=== PATIENT | female | born 1995 | race Caucasian/White ===

== ENCOUNTER → 2021-08-03 | Outpatient (CLI) ==
[~2021-08-03] MED LIST: ACHD5005 PO; HYDR-4226 PO; IBUP-844 PO; MULT-1136 PO; PREN1TAB19 PO; bcp TD
== END ==
LOC: LABNPT 08:00
DX: Z53.9 Procedure and treatment not carried out, unspecified reason (principal)

== ENCOUNTER 2022-08-27 10:38 | Outpatient (CLI) | payer MEDICAID ==
[~2022-08-27] VITALS: Ht 167.7 cm; Wt 120.5 kg
[2022-08-27 11:05] VITALS: BP 141/85
[2022-08-27 11:11] LABS: BILIRUBIN,URINE NEGATIVE (NEGATIVE); CLARITY,URINE CLEAR; COLOR,URINE YELLOW; GLUCOSE, URINE (UA) NEGATIVE (NEGATIVE); KETONES,URINE NEGATIVE (NEGATIVE); LEUKOCYTE ESTERASE ,URINE NEGATIVE (NEGATIVE); NITRITE,URINE NEGATIVE (NEGATIVE); PROTEIN,URINE NEGATIVE (NEGATIVE)
[2022-08-27 11:15] VITALS: BP 141/86
[2022-08-27 11:20] VITALS: BP 147/80
[2022-08-27 11:28] LABS: BACTERIA,URINE NEGATIVE /HPF; CALCIUM OXALATE CRYSTALS,UR FEW /LPF; RBC,URINE 0-2 /HPF
[2022-08-27] MEDS ORDERED: ACETAMINOPHEN 500 MG TAB (TYLENOL) PO NR (12:00)
[2022-08-27 12:07] LABS: BASOPHILS % (AUTO) 0 % (0-10); EOSINOPHILS % (AUTO) 1 % (0-10); HEMATOCRIT 35 % (35-52); HEMOGLOBIN 11.5 g/dL (11.5-16.0); LYMPHOCYTES # (AUTO) 1.6 10^3/uL (1.0-4.0); LYMPHOCYTES % (AUTO) 19 % (12-44); MEAN CORPUSCULAR HEMOGLOBIN 28 pg (25-34); MEAN CORPUSCULAR HGB CONC 33 g/dL (32-36); MEAN CORPUSCULAR VOLUME 84 fL (80-99); MEAN PLATELET VOLUME 10.3 fL (9.0-12.2); MONOCYTES # (AUTO) 0.5 10^3/uL (0.0-1.0); MONOCYTES % (AUTO) 6 % (0-12); NEUTROPHILS # (AUTO) 6.1 10^3/uL (1.8-7.8); NEUTROPHILS % (AUTO) 73 % (42-75); PLATELET COUNT 214 10^3/uL (130-400); WHITE BLOOD COUNT 8.4 10^3/uL (4.3-11.0)
[2022-08-27 12:28] LABS: ALBUMIN 3.2 GM/DL (3.2-4.5)
[2022-08-27 12:29] LABS: CALCIUM 9.1 MG/DL (8.5-10.1)
[2022-08-27 12:30] LABS: TOTAL PROTEIN 6.7 GM/DL (6.4-8.2)
[2022-08-27 12:32] LABS: BILIRUBIN,TOTAL 0.2 MG/DL (0.1-1.0)
[2022-08-27 12:34] LABS: CREATININE SERUM 0.66 MG/DL (0.60-1.30)
[2022-08-27 12:37] LABS: URIC ACID 3.9 MG/DL (2.6-7.2)
--- NOTE | 2022-08-28 08:42 | Physician Query-Final Dx ---
Clinic Account Progress/Dx Physician Query: Please give diagnosis Please include # weeks gestation Date of Service Aug 27, 2022 at 10:38 JulAug 28, 2022 08:42
== END 2022-08-27 13:00 ==
LOC: LDRP 10:38 → WSo 10:38
PROVIDERS: ATTEND Family Medicine
DX: O26.853 Spotting complicating pregnancy, third trimester (principal); Z3A.35 35 weeks gestation of pregnancy
CPT/HCPCS: 36415; 80053; 81000; 82570; 83615; 84156; 84550; 85025; 99214

== ENCOUNTER 2022-09-02 18:18 | Inpatient (IN) | payer OTHER, MEDICAID ==
[~2022-09-02] VITALS: Ht 168 cm; Wt 119.7 kg
[2022-09-02] VITALS (13 sets, daily range): BP systolic 109–160; BP diastolic 58–107
[2022-09-02] MEDS ORDERED: ceFAZolin INJECTION 2,000 MG ONE ×2 (20:10→20:11)
[2022-09-02] MEDS ORDERED: NS (IVPB) 50 ML ONE (20:11)
[2022-09-02] MEDS ORDERED: CITRIC ACID/SOB CIT (BICITRA) 30 ML UDC ONE (20:14)
[2022-09-02] MEDS ORDERED: METOCLOPRAMIDE INJ 10 MG/2 ML (REGLAN) ONE (20:14)
[2022-09-02] MEDS ORDERED: FAMOTIDINE 20MG/2ML IV (PEPCID) ONE (20:14)
[2022-09-02] MEDS ORDERED: METOCLOPRAMIDE INJ 10 MG/2 ML (REGLAN) IV ONE (20:15)
[2022-09-02] MEDS ORDERED: ceFAZolin INJECTION 2,000 MG in NS (IVPB) 50 ML IV ONE (20:15)
[2022-09-02] MEDS ORDERED: TETANUS,DIPTH,PERTUSS P/F (BOOSTRIX) 0.5 ML VIAL IM SCH (20:15)
[2022-09-02] MEDS ORDERED: FAMOTIDINE 20MG/2ML IV (PEPCID) IV ONE (20:15)
[2022-09-02] MEDS ORDERED: LACTATED RINGERS 1,000 ML IV PRN (20:15)
[2022-09-02] MEDS ORDERED: ONDANSETRON 4 MG/2 ML (SDV) Z0FRAN IVP ONE (20:15)
[2022-09-02] MEDS ORDERED: CITRIC ACID/SOB CIT (BICITRA) 30 ML UDC PO ONE (20:15)
[2022-09-02 20:19] LABS: BASOPHILS % (AUTO) 0 % (0-10); EOSINOPHILS # (AUTO) 0.1 10^3/uL (0.0-0.3); EOSINOPHILS % (AUTO) 1 % (0-10); HEMATOCRIT 37 % (35-52); HEMOGLOBIN 11.7 g/dL (11.5-16.0); LYMPHOCYTES # (AUTO) 2.1 10^3/uL (1.0-4.0); LYMPHOCYTES % (AUTO) 20 % (12-44); MEAN CORPUSCULAR HEMOGLOBIN 28 pg (25-34); MEAN CORPUSCULAR HGB CONC 32 g/dL (32-36); MEAN CORPUSCULAR VOLUME 86 fL (80-99); MEAN PLATELET VOLUME 10.3 fL (9.0-12.2); MONOCYTES # (AUTO) 0.8 10^3/uL (0.0-1.0); MONOCYTES % (AUTO) 8 % (0-12); NEUTROPHILS # (AUTO) 7.4 10^3/uL (1.8-7.8); NEUTROPHILS % (AUTO) 71 % (42-75); PLATELET COUNT 243 10^3/uL (130-400); WHITE BLOOD COUNT 10.5 10^3/uL (4.3-11.0)
--- NOTE | 2022-09-02 20:19 | History & Physical-OB ---
OB - Chief Complaint & HPI Date/Time Date of Admission: Date of Admission: Sep 02, 2022 at 19:55 Date seen by a Provider: Sep 02, 2022 Time Seen by a Provider: 19:45 Chief Complaint/History OB-Reason for Admission/Chief: Rupture of Membranes Hx : 2 Hx Para: 1 Expected Date of Delivery: Sep 02, 2022 Gestational Age in Weeks: 36 Gestational Age in Days: 3 Indication for : desires repeat Allergies and Home Medications Allergies Coded Allergies: No Known Drug Allergies (Verified , 08/03/21) Patient Home Medication List Home Medication List Reviewed: Yes Multivitamin (Multivitamin) 1 Each Tablet, 1 EACH PO DAILY, (Reported) Entered as Reported by: ARIC CRISOSTOMO on 06/15/20 1415 Discontinued Medications [bcp] , 1 PATCH TD WEEK, (Reported) Discontinued Reason: No Longer Taking Entered as Reported by: STEVE GARCIA on 07/19/20 1614 OB - History Hx of Present Care: Yes Obstetrical History Hx : 2 Hx Para: 1 Delivery History Adverse Rxn to Tranfusion: No Patient Past Medical History None Social History/Family History Alcohol Use: Denies Use Recreational Drug Use: No 2nd Hand Smoke Exposure: No Immunizations Influenza Vaccine Up-to-Date: Yes; Up-to-Date Tetanus Booster (TDap): Less than 5yrs OB - Admission Exam Physical Exam Vitals: Vital Signs 09/02/22 19:00 Temp 36.7 Pulse 92 Resp 18 B/P (MAP) 154/94 Pulse Ox 98 O2 Delivery Room Air Labs Laboratory Tests Test 09/02/22 18:25 Range/Units Urine Protein 21 H 6-12 MG/DL Urine Creatinine 101 30-125 MG/DL Urine Protein/Creatinine Ratio 0.21 Amniotic Fluid Ferning Test N NEGATIVE Membranes Rupture POSITIVE OB - Assessment/Plan/Diagnosis Assessment Assessment: active labor, section, IUP - , rupture of membranes Admission Dx PPROM, Previous requesting repeat, early labor. Admission Status: Inpatient Order (span 2 midnights) Reason for Inpatient Admission: PPROM, Prior requesting repeat Plan Plan: Section LAUREN SIMON DO Sep 02, 2022 20:19
[2022-09-02] MEDS ORDERED: OXYTOCIN PRE-MIX DRIP 1,000 ML IV ONE (20:31)
[2022-09-02] MEDS ORDERED: ONDANSETRON 4 MG/2 ML (SDV) Z0FRAN ONE (20:31)
[2022-09-02] MEDS ORDERED: fentaNYL INJ 100 MCG/2 ML AMP ONE (20:31)
[2022-09-02] MEDS ORDERED: DOCUSATE SODIUM 100 MG (COLACE) CAP PO SCH (21:00)
[2022-09-02] MEDS ORDERED: PHENYLEPHRINE 100 MCG/ML 10 ML (ANESTHESIA) SYR ONE (21:01)
[2022-09-02] MEDS ORDERED: BUPIVACAINE 0.25% 10 ML (SENSORCAINE) VIAL ONE (21:36)
[2022-09-02] MEDS ORDERED: ONDANSETRON 4 MG/2 ML (SDV) Z0FRAN IVP PRN (22:00)
[2022-09-02] MEDS ORDERED: MEASLES,MUMPS,RUBELLA 1 EA INJ SC SCH (22:00)
[2022-09-02] MEDS ORDERED: OXYTOCIN PRE-MIX DRIP 500 ML IV SCH (22:00)
[2022-09-02] MEDS ORDERED: CATHETER FLUSH 10 ML SYR IV SCH ×2 (22:00)
--- NOTE | 2022-09-02 22:10 | Cesarean Section Operative ---
Procedure Procedure Note Pre-operative Diagnosis: Rashmi brothers (27 /Para 2 / 1, Gestational Age (wks)36 with PPROM, early labor, prior section requesting RLTCS, obesity, and elevated BPs. Post-operative Diagnosis: same with delivery of viable male. Procedure: Repeat low transverse section Physician: LAUREN SIMON DO Physician Vice President: Dr Pike Estimated blood loss: 300 mL Disposition: Stable at transfer to recovery room. Findings: Viable male , Apgars 8/9, normal appearing uterus, tubes, and ovaries. Indications:Rashmi brothers (27 /Para 2 / 1,Gestational Age (wks)3 6 presenting with PPROM, early labor, prior section requesting RLTCS, obesity, and elevated BPs. Procedure Details: The patient was seen in pre-op and the procedure was discussed with the patient in full, including the risks, benefits, and alternatives. All questions were answered. The patient was taken to the operating room and a time out was performed, verifying patient and procedure. After spinal anesthesia was placed by our anesthesia colleagues, the patient was placed in the dorsal supine with leftward tilt for uterine displacement.~ Her abdomen was then prepped and draped in the typical sterile fashion. A Pfannenstiel skin incision was made using a scalpel and carried down through the underlying fascia. The fascia was incised in the midline. On both the inferior and superior fascia side the rectus muscle was dissected off bluntly and sharply using Alonso scissors. The peritoneum was identified and entered bluntly in the midline. This was then stretched laterally using manual strength. The bladder blade was then placed. A bladder flap was created with the use of Metzenbaum scissors.~ A scalpel was utilized to make a low transverse uterine incision. Amniotomy was performed with an Allis clamp with return of clear fluid. The 's head was grasped and brought to the level of the incision. Fundal pressure was applied and infant was delivered without difficulty. Mouth and nares were suctioned with bulb suction. After the umbilical cord was clamped and cut, the was taken to the warmer by Dr Pike. A sample of cord blood was then obtained. The placenta was delivered intact via uterine massage. The uterus was exteriorized and cleared of all clots and debris. The uterine incision was closed using 1.0 Vicryl in a running locked fashion. A second imbricated layer was placed using 1.0 Vicryl in a running fashion as well. The uterus was flexed forward and the posterior rectouterine space was inspected and cleared of all clots and debris. Again the hysterotomy site was examined and hemostasis was observed. The bilateral tubes and ovaries appeared normal. The uterus was placed back into the abdominal cavity and abdominal gutters were cleared of all clots and debris. A final check of the uterine incision showed it to be hemostatic. The abdominal rectus muscles were reapproximated with 1.0 Vicryl sutures. The fascia was closed with a Stratafix suture in a running fashion. The subcutaneous space was closed with 3-0 Vicryl suture. The skin was then closed using 4-0 Monocryl in a running subcuticular fashion. The skin edges were reap proximated together and were hemostatic. All sponge, lap and needle counts were correct at the end of the procedure per nursing. Vitals - Labs Vital Signs - I&O Vital Signs Date Time Temp Pulse Resp B/P (MAP) Pulse Ox O2 Delivery O2 Flow Rate FiO2 09/02/22 19:00 36.7 92 18 154/94 98 Room Air Labs Laboratory Tests 09/02/22 18:25: Urine Protein 21H, Urine Creatinine 101, Urine Protein/Creatinine Ratio 0.21, Am niotic Fluid Ferning Test N, Membranes Rupture POSITIVE 09/02/22 19:55: White Blood Count 10.5, Red Blood Count 4.24, Hemoglobin 11.7, Hematocrit 37, Mean Corpuscular Volume 86, Mean Corpuscular Hemoglobin 28, Mean Corpuscular He moglobin Concent 32, Red Cell Distribution Width 13.7, Platelet Count 243, Mean Platelet Volume 10.3, Immature Granulocyte % (Auto) 1, Neutrophils (%) (Auto) 71, Lymphocytes (%) (Auto) 20, Monocytes (%) (Auto) 8, Eosinophils (%) (Auto) 1, Basophils (%) (Auto) 0, Neutrophils # (Auto) 7.4, Lymphocytes # (Auto) 2.1, Monocytes # (Auto) 0.8, Eosinophils # (Auto) 0.1, Basophils # (Auto) 0.0, Immature Granulocyte # (Auto) 0.1 LAUREN SIMON DO Sep 02, 2022:10
[2022-09-03] MEDS: oxyCODONE/APAP 5/325MG (PERCOCET 5) TABLET PO PRN ×4 (01:53→18:03)
[2022-09-03 01:56] VITALS: BP 122/73
[2022-09-03 05:12] LABS: BASOPHILS % (AUTO) 0 % (0-10); EOSINOPHILS % (AUTO) 0 % (0-10); HEMATOCRIT 31 % (35-52); LYMPHOCYTES # (AUTO) 2.1 10^3/uL (1.0-4.0); LYMPHOCYTES % (AUTO) 19 % (12-44); MEAN CORPUSCULAR HEMOGLOBIN 28 pg (25-34); MEAN CORPUSCULAR HGB CONC 33 g/dL (32-36); MEAN CORPUSCULAR VOLUME 86 fL (80-99); MEAN PLATELET VOLUME 10.3 fL (9.0-12.2); MONOCYTES # (AUTO) 0.9 10^3/uL (0.0-1.0); MONOCYTES % (AUTO) 8 % (0-12); NEUTROPHILS # (AUTO) 8.1 10^3/uL (1.8-7.8); NEUTROPHILS % (AUTO) 73 % (42-75); PLATELET COUNT 202 10^3/uL (130-400); WHITE BLOOD COUNT 11.1 10^3/uL (4.3-11.0)
[2022-09-03 05:32] LABS: CREATININE SERUM 0.62 MG/DL (0.60-1.30)
[2022-09-03] MEDS ORDERED: CATHETER FLUSH 10 ML SYR IV SCH (06:00)
[2022-09-03 06:50] VITALS: BP 115/67
--- NOTE | 2022-09-03 07:25 | Postpartum Progress Note ---
Note Note Day # 1 Subjective: Patient is without complaints. Ambulating, voiding. Tolerating a regular diet without nausea or vomiting. Normal lochia. Pain is well controlled with oral pain medications. Objective: Physical Exam: General - Alert and oriented, no apparent distress Abdomen - Soft, appropriately tender to palpation, non-distended, fundus firm at umbilicus Extremities - no edema, negative Esme's bilaterally Incision- c/d/i Assessment: POD 1 RLTCS Acute blood loss anemia Plan: Routine care. Encourage breast feeding. Encourage ambulation. Ferrous sulfate supplementation. Plan for discharge tomorrow Vitals - Labs Vital Signs - I&O Vital Signs Date Time Temp Pulse Resp B/P (MAP) Pulse Ox O2 Delivery O2 Flow Rate FiO2 09/03/22 05:18 Room Air 09/03/22 01:56 36.5 80 18 122/73 (89) 96 Room Air 09/02/22 23:03 36.6 69 18 124/71 (88) 97 Room Air 09/02/22 22:40 36.5 20 126/73 (90) 98 Room Air 09/02/22 22:35 Room Air 09/02/22 22:30 20 125/67 (86) 98 Room Air 09/02/22 22:20 Room Air 09/02/22 22:20 20 113/78 (90) 100 Room Air 09/02/22 22:10 24 126/74 (91) 98 Room Air 09/02/22 22:05 Room Air 09/02/22 22:00 20 114/64 (81) 98 Room Air 09/02/22 21:50 Room Air 09/02/22 21:50 36.4 16 109/58 (75) 97 Room Air 09/02/22 20:21 97 18 160/80 (106) 09/02/22 20:01 92 18 140/107 (118) 09/02/22 19:35 97 18 142/85 (104) 98 Room Air 09/02/22 19:19 85 18 145/85 (105) 97 Room Air 09/02/22 19:05 90 18 143/85 (104) 97 Room Air 09/02/22 19:00 36.7 92 18 154/94 98 Room Air I & O 09/03/22 07:00 Intake Total 500 ml Output Total 340 ml Balance 160 ml Labs Laboratory Tests 09/02/22 18:25: Urine Protein 21H, Urine Creatinine 101, Urine Protein/Creatinine Ratio 0.21, Amniotic Fluid Ferning Test N, Membranes Rupture POSITIVE 09/02/22 19:55: White Blood Count 10.5, Red Blood Count 4.24, Hemoglobin 11.7, Hematocrit 37, Mean Corpuscular Volume 86, Mean Corpuscular Hemoglobin 28, Mean Corpuscular Hemoglobin Concent 32, Red Cell Distribution Width 13.7, Platelet Count 243, Mean Platelet Volume 10.3, Immature Granulocyte % (Auto) 1, Neutrophils (%) (Auto) 71, Lymphocytes (%) (Auto) 20, Monocytes (%) (Auto) 8, Eosinophils (%) (Auto) 1, Basophils (%) (Auto) 0, Neutrophils # (Auto) 7.4, Lymphocytes # (Auto) 2.1, Monocytes # (Auto) 0.8, Eosinophils # (Auto) 0.1, Basophils # (Auto) 0.0, Immature Granulocyte # (Auto) 0.1 09/03/22 05:00: White Blood Count 11.1H, Red Blood Count 3.58L, Hemoglobin 10.0L, Hematocrit 31L , Mean Corpuscular Volume 86, Mean Corpuscular Hemoglobin 28, Mean Corpuscular Hemoglobin Concent 33, Red Cell Distribution Width 13.3, Platelet Count 202, Mean Platelet Volume 10.3, Immature Granulocyte % (Auto) 0, Neutrophils (%) (Auto) 73, Lymphocytes (%) (Auto) 19, Monocytes (%) (Auto) 8, Eosinophils (%) (Auto) 0, Basophils (%) (Auto) 0, Neutrophils # (Auto) 8.1H, Lymphocytes # (Auto) 2.1, Monocytes # (Auto) 0.9, Eosinophils # (Auto) 0.0, Basophils # (Auto) 0.0, Immature Granulocyte # (Auto) 0.0, Blood Urea Nitrogen 5L, Creatinine 0.62, Estimat Glomerular Filtration Rate 124, BUN/Creatinine Ratio 8 DERRELL REYNOSO DO Sep 03, 2022 07:25
--- NOTE | 2022-09-03 07:26 | Discharge Inst-Women's Service ---
Discharge Inst-Women's Serv Depart Medication/Instructions New, Converted or Re-Newed RX: Transmitted to Pharmacy Final Diagnosis POD 2 RLTCS Problems Reviewed?: Yes Consults/Follow Up Additional Follow Up: Yes Orders/Referrals Dr. Mejia in 7-10 days and [facility] in 6 weeks Activity Activity: Activity as Tolerated Driving Instructions: No Driving for 1 Week NO SMOKING: NO SMOKING Nothing Inside Vagina: No Douching, No [place], No Tampons Diet Discharge Diet: No Restrictions Symptoms to Report to : Bleeding Excessive, Pain Increased, Fever Over 101 Degrees F, Vaginal Bleeding Increase, Questions/Concerns For Any Problems or Questions: Contact Your Physician Skin/Wound Care Infection Signs and Symptoms: Increased Redness, Foul Odor of Wound, Increased Drainage, Skin Itchy or Has a Rash, Increased Swelling, Temperature Above 101 F Operative Area Clean and Dry: Keep Incision Clean/Dry Stitches/Raghavendra/Dermabond: Dermabond, Care of Stitches Bathing Instructions: DERRELL Gillette DO Sep 03, 2022 07:26
[2022-09-03 08:17] VITALS: BP 120/71
[2022-09-03] MEDS: DOCUSATE SODIUM 100 MG (COLACE) CAP PO SCH ×2 (08:17→20:40)
[2022-09-03] MEDS: IBUPROFEN 600 MG (MOTRIN) TAB PO SCH ×3 (08:18→20:40)
[2022-09-03] MEDS ORDERED: DOCUSATE SODIUM 100 MG (COLACE) CAP PO SCH (09:00)
[2022-09-03 12:00] VITALS: BP 117/61
--- NOTE | 2022-09-03 12:45 | Anesthesia-Regional Post-Op ---
Regional Patient Condition Mental Status: Alert, Oriented x3 Circulation: Same as Pre-Op Headache: Absent Sensation: Full Recovery Motor Block: Absent Post Op Complications Complications None Follow Up Care/Instructions Patient Instructions None needed. Anesthesia/Patient Condition Patient is doing well, no complaints, stable vital signs, no apparent adverse anesthesia problems. No complications reported per nursing. CONNIE CAMACHO CRNA Sep 03, 2022 12:45
[2022-09-03 16:00] VITALS: BP 116/70
[2022-09-03 20:41] VITALS: BP 129/76
[2022-09-04 02:04] VITALS: BP 127/80
[2022-09-04] MEDS: IBUPROFEN 600 MG (MOTRIN) TAB PO SCH ×3 (02:05→13:25)
--- NOTE | 2022-09-04 07:31 | Postpartum Progress Note ---
Note Note Day # 2 Subjective: Patient is without complaints. Ambulating, voiding. Tolerating a regular diet without nausea or vomiting. Normal lochia. Pain is well controlled with oral pain medications. Objective: Physical Exam: General - Alert and oriented, no apparent distress Abdomen - Soft, appropriately tender to palpation, non-distended, fundus firm at umbilicus Extremities - no edema, negative Esme's bilaterally Incision- c/d/i Assessment: POD 2 RLTCS Acute blood loss anemia Plan: Routine care. Encourage breast feeding. Encourage ambulation. Ferrous sulfate supplementation. Plan for discharge today Vitals - Labs Vital Signs - I&O Vital Signs Date Time Temp Pulse Resp B/P (MAP) Pulse Ox O2 Delivery O2 Flow Rate FiO2 09/04/22 02:04 36.2 78 18 127/80 (96) 97 Room Air 09/03/22 20:41 36.2 79 18 129/76 (93) 97 Room Air 09/03/22 16:00 36.5 90 18 116/70 (85) 96 Room Air 09/03/22 12:00 36.1 82 18 117/61 (79) 96 Room Air 09/03/22 08:17 37.0 86 18 120/71 (87) 96 Room Air I & O 09/04/22 07:00 Intake Total 2200 ml Output Total 2500 ml Balance -300 ml DERRELL REYNOSO DO Sep 04, 2022 07:31
[2022-09-04] MEDS: DOCUSATE SODIUM 100 MG (COLACE) CAP PO SCH (08:39)
[2022-09-04 08:40] VITALS: BP 133/69
[2022-09-04] MEDS: oxyCODONE/APAP 5/325MG (PERCOCET 5) TABLET PO PRN (08:40)
[2022-09-04] MEDS ORDERED: IBUP-844 PO (11:11)
[2022-09-04] MEDS ORDERED: OXYC1TAB87 PO (11:11)
[2022-09-04] MEDS ORDERED: DOCU100C37 PO (11:11)
[2022-09-04 13:26] VITALS: BP 120/79
== END 2022-09-04 14:20 | disposition home or self-care (01) | DRG 787 ==
LOC: WSo 18:18 → LDRP 18:18 → WSo 18:22 → LDRP 19:55
PROVIDERS: ADMIT Obstetrics & Gynecology; ATTEND Obstetrics & Gynecology
PROC: 10D00Z1 Extraction of Products of Conception, Low, Open Approach (ICD-10-PCS; principal; 2022-09-02 20:44)
DX: O34.211 Maternal care for low transverse scar from previous cesarean delivery (principal); D62 Acute posthemorrhagic anemia; O42.013 Preterm premature rupture of membranes, onset of labor within 24 hours of rupture, third trimester; O90.81 Anemia of the puerperium; O99.214 Obesity complicating childbirth; Z37.0 Single live birth; Z3A.36 36 weeks gestation of pregnancy
CPT/HCPCS: 36415; 82565; 82570; 84112; 84156; 84520; 85025; 86850; 86900; 86901; 89060; 94664; 99213